=== PATIENT | male | born 2000 | race Caucasian/White ===

== ENCOUNTER 2018-11-04 13:57 | Emergency (ER) | payer MEDICAID, OTHER ==
[~2018-11-04] VITALS: Ht 177.8 cm; Wt 127.0 kg
[2018-11-04 14:09] VITALS: BP 174/99
== END 2018-11-04 17:27 | disposition home or self-care (01) ==
LOC: EDBD 13:57 → ER 13:57
DX: S46.911A Strain of unspecified muscle, fascia and tendon at shoulder and upper arm level, right arm, initial encounter (principal); R51 Headache; V43.62XA Car passenger injured in collision with other type car in traffic accident, initial encounter; Y93.89 Activity, other specified; Y92.488 Other paved roadways as the place of occurrence of the external cause; Y99.8 Other external cause status
CPT/HCPCS: 70450; 72125; 73030